=== PATIENT | male | born 1995 | race Caucasian/White ===

== ENCOUNTER 2018-04-22 13:06 | Emergency (ER) | payer OTHER ==
[2018-04-22] MEDS ORDERED: NS 1,000 ML IV ONE (13:41)
--- NOTE | 2018-04-22 14:04 | EDPHY ---
HPI/HX/ROS/PE/MDM Narrative: CHIEF COMPLAINT: Chest discomfort HISTORY OF PRESENT ILLNESS: This patient is a 22 year old male with history of GERD. He complains of 2.5 week history of feeling weak and winded, as well as recurrent episodes of tachycardia and sensation of pounding heart. His symptoms began shortly after seeing his doctor in [place] for GERD symptoms and possible H. Pylori. He took a short course of omeprazole at that time, but discontinued it when his H. Pylori test was negative. His current symptoms began around the time he started taking omeprazole, but did not relieve when he stopped taking it. He recently moved to [place] from [place], and states his symptoms began [address] He reports a recent episode of sitting and suddenly developed a HR of 160 without any provocation. This lasted 2 hours. Since then, he has had similar symptoms intermittently, though never as severe as the initial episode. He went to urgent care and had and EKG but no further workup. He notes that since symptoms began, "I get way too tired working out". Today, he felt lightheaded and weak walking to his car and presents for evaluation. He denies syncope. No fever, chills, chest pain, vomiting, diarrhea, urinary complaints, headache, blood in his stool. No personal or family history of clots or clotting disorders. REVIEW OF SYSTEMS: A comprehensive 10 system review of systems is otherwise negative aside from elements mentioned in the history of present illness and medical decision making. PAST MEDICAL HISTORY: GERD. H. Pylori. No family history of anerysm, dissection , known marfan's disease. SOCIAL HISTORY: student services director in computer science. No tobacco use. Social alcohol use. Occasional marijuana use. Recently moved to [place] from [place]. VITAL SIGNS: Reviewed by me, 127/85, HR 95 GENERAL: Tall, thin. Somewhat anxious appearing. Resting comfortably in no respiratory distress. HEENT: Atraumatic. Eyes: No icterus, no injection. Mouth: moist mucous membranes. No erythema or lesions. Neck: supple with no adenopathy. LUNGS: Clear to auscultation bilaterally, no wheezes, rhonchi or rales. CARDIAC: Regular rate and rhythm, no rubs, murmurs or gallops. ABDOMEN: Soft, nontender, nondistended, bowel sounds normal. BACK: No CVA tenderness. EXTREMITIES: No trauma. No edema. Range of motion is normal throughout. NEURO: Alert and oriented, grossly nonfocal. SKIN: Diaphoretic. Warm, no rash. PSYCHIATRIC: Normal mentation, no agitation. Portions of this note were transcribed by a medical attendant. I personally performed a history, physical exam, medical decision making, and confirmed accuracy of information the transcribed note. ED Course: 22 year old male presents with 2.5 week history of intermittent episodes of tachycardia and increasing weakness and shortness of breath with exertion. Notably, the patient is quite tall and thin. He is anxious-appearing and slightly diaphoretic on exam, but exam is otherwise largely unremarkable. Plan for EKG, chest x-ray, labs including CBC, chemistries, D-dimer, liver, lipase, troponin, TSH. Patient is on the heart monitor and has been instructed to call in case recurrent symptoms. 12-LEAD EKG: Please see the full report in [facility]. My interpretation: Normal sinus rhythm, no delta waves. Labs are largely unremarkable. Troponin and d-dimer are negative. TSH within normal limits. Chest x-ray is negative for acute processes. No evidence of acute cardiac processes at this time, screening test for PE is negative. Reassessed patient. Discussed imaging and laboratory results. Plan to discharge home in good condition with referral to cardiology for further evaluation including possible Holter monitor study. Referral to local primary care provided. I recommended he try an H2 omar such as Tagamet rather than PPIs if he is concerned that omeprazole triggered these symptoms. Sounds like he does have a hx of GERD but unclear what is causinng this tachycardia and KENYON. Follow up and return precautions discussed. He is comfortable with this plan. MDM: Diff dx of patients complaints of weakness, KENYON, intermittent palpitations includes but not limited to narrow complex tachycardia (including various causes of sinus tachycardia), SVT, atrial flutter and atrial fibrillation, myocarditis, PE, thyroid storm, electrolyte abnormalities, drug or alcohol use, drug or alcohol abuse, anxiety. - Data Points Imaging Results: Impression: No acute pulmonary disease. Cosign: Dr. Giacomo Carrasquillo Dictated By: Lazarus David Imaging: I viewed and interpreted images myself Laboratory Results: Laboratory Results 04/22/18 14:25 04/22/18 14:25 Medications Given: Discontinued Medications Sodium Chloride (Ns) 1,000 mls @ 0 mls/hr IV EDNOW ONE; Wide Open PRN Reason: Protocol Stop: 04/22/18 13:42 Last Admin: 04/22/18 14:24 Dose: 1,000 mls Point of Care Test Results: Chemistry 04/22/18 14:28 POC Troponin I 0.00 ng/mL ng/mL (0.00-0.08) General Time Seen by Provider: 04/22/18 13:33 Initial Vital Signs: Initial Vital Signs Temperature (C) 36.5 C 04/22/18 13:08 Heart Rate 95 04/22/18 13:08 Respiratory Rate 18 04/22/18 13:08 Blood Pressure 127/83 H 04/22/18 13:08 O2 Sat (%) 97 04/22/18 13:08 O2 Delivery Mode Room Air Allergies/Adverse Reactions: No Known Allergies Allergy (Unverified 04/22/18 13:07) Home Medications: Medication Instructions Recorded NK [No Known Home Meds] 04/22/18 Departure - Departure Disposition: Home, Routine, Self-Care Clinical Impression: Tachycardia Chest pain Qualifiers: Chest pain type: unspecified Qualified Code(s): R07.9 - Chest pain, unspecified Dyspnea Qualifiers: Dyspnea type: dyspnea on exertion Qualified Code(s): R06.09 - Other forms of dyspnea Condition: Good Instructions: Chest Pain (ED) Additional Instructions: We do not see any evidence of acute cardiac issues today. You may wish to try a medication such as Tagamet, available over the counter, which is an H2 omar instead of a PPI (proton pump inhibitor) but also helps with symptoms of heartburn. Follow-up with your primary doctor within 2-3 days, We have referred you to a local primary care provider. Follow up with a tank farm attendant for further testing including possible Holter monitor. We have referred you to our tank farm attendant supply chain consultant. Return to the Emergency Department for fever, chest pain, shortness of breath, increasing pain or other worsening of condition. Referrals: Cheng Wells MD [Medical Doctor] - As per Instructions Julee Rhodes MD [Medical Doctor] - As per Instructions Report Scribed for: Beth Boone Report Scribed by: Donita Pineda Date of Report: 04/22/18 Time of Report: 15:46
[2018-04-22 14:36] LABS: PLATELET COUNT 147 10^3/uL (150-400)
[2018-04-22 15:56] VITALS: BP 120/79
--- NOTE | 2018-04-22 20:48 | CPEKG ---
Test Reason : OPEN Blood Pressure : / mmHG Vent. Rate : 086 BPM Atrial Rate : 086 BPM P-R Int : 166 ms QRS Dur : 111 ms QT Int : 339 ms P-R-T Axes : 088 096 072 degrees QTc Int : 406 ms Sinus rhythm Probable left atrial enlargement Consider RVH w/ secondary repol abnormality ST elev, probable normal early repol pattern Confirmed by Beth Boone ([id number]) on 04/22/2018 8:48:22 PM Referred By: Confirmed By:Beth Boone
== END 2018-04-22 15:54 | disposition home or self-care (01) ==
DX: R00.0 Tachycardia, unspecified (principal); R07.9 Chest pain, unspecified; R06.09 Other forms of dyspnea; E86.9 Volume depletion, unspecified
CPT/HCPCS: 84484-ER

== ENCOUNTER 2018-04-24 16:19 | Emergency (ER) | payer OTHER ==
[2018-04-24 16:43] VITALS: BP 126/76
== END 2018-04-24 17:40 | disposition left against medical advice (07) ==
DX: Z53.21 Procedure and treatment not carried out due to patient leaving prior to being seen by health care provider (principal)

== ENCOUNTER → 2018-04-26 | Outpatient (CLI) | payer OTHER ==
[~2018-04-26] MED LIST: IOPAMIDOL (ISOVUE 370) 100 ML BTL IV ONE
== END ==
LOC: FIMAGING 12:24
PROVIDERS: ATTEND Internal Medicine Cardiovascular Disease
DX: R94.39 Abnormal result of other cardiovascular function study (principal); I45.10 Unspecified right bundle-branch block; R00.0 Tachycardia, unspecified; R06.02 Shortness of breath
CPT/HCPCS: Q9967